=== PATIENT | female | born 1940 | race Caucasian/White ===

== ENCOUNTER 2024-08-27 15:41 | Inpatient (IN) ==
[2024-08-27] MEDS ORDERED: IOPAMIDOL 100 ML BOTTLE IV ONE (15:42)
[2024-08-27 16:18] LABS: Basophils # (Auto) 0.04 K/mcL (0.00-0.30); Basophils % (Auto) 0.5 % (0.0-2.0); Eosinophils # (Auto) 0.06 K/mcL (0.00-0.70); Eosinophils % (Auto) 0.7 % (0.0-7.0); Hematocrit 46.2 % (34.1-44.9); Hemoglobin 15.3 g/dL (11.2-15.7); Lymphocytes # (Auto) 1.81 K/mcL (1.50-4.80); Lymphocytes % (Auto) 20.6 % (15.5-49.0); Mean Corpuscular HGB Conc 33.1 g/dL (31.0-36.0); Monocytes # (Auto) 0.87 K/mcL (0.10-0.90); Monocytes % (Auto) 9.9 % (1.0-12.0); Neutrophils % (Auto) 68.2 % (38.0-78.0); Platelet Count 181 K/mcL (140-440); RBC 5.26 M/mcL (3.59-5.38); WBC 8.8 K/mcL (4.5-11.0)
[2024-08-27 16:34] LABS: INR 0.9 (0.9-1.1); Prothrombin Time 13.0 sec (11.9-14.5)
[2024-08-27 16:36] LABS: ALT/SGPT 47 U/L (<40); AST/SGOT 28 U/L (<32); Albumin 4.2 gm/dL (3.2-5.2); Albumin/Globulin Ratio 1.7 (1.0-2.3); Alkaline Phosphatase 102 U/L (39-117); Anion Gap 16.0 (8.0-16.0); Bilirubin,Total 0.5 mg/dL (0.1-1.0); Blood Urea Nitrogen 13 mg/dL (8-23); Calcium 10.0 mg/dL (8.6-10.4); Carbon Dioxide 25 mmol/L (22-30); Chloride 108 mmol/L (96-108); Globulin 2.5 gm/dL (2.2-3.7); Glucose 123 mg/dL (70-105); Potassium 3.6 mmol/L (3.3-5.1); Sodium 149 mmol/L (133-145)
[2024-08-27 16:44] LABS: Partial Thromboplastin Time 21.4 sec (20.0-37.0)
[2024-08-27] MEDS: 0.9 % SODIUM CHLORIDE 500 ML IV ONE (16:52)
[2024-08-27] MEDS: LABETALOL HCL 20 MG/4 ML VIAL IV ONE (17:24)
[2024-08-27] MEDS: ASPIRIN 81 MG TAB.CHEW CHEWED ONE (17:30)
[2024-08-27] MEDS: ATORVASTATIN 40 MG TABLET PO ONE (19:27)
[2024-08-27] MEDS ORDERED: POTASSIUM CHLORIDE 40 MEQ in DEXTROSE 5% IN WATER 500 ML IV PRN (19:45)
[2024-08-27] MEDS ORDERED: MAGNESIUM SULFATE 2 GM/50 ML BAG IV PRN (19:45)
[2024-08-27] MEDS ORDERED: ATORVASTATIN 40 MG TABLET PO ONE (19:45)
[2024-08-27] MEDS ORDERED: POTASSIUM CHLORIDE 20 MEQ TABLET PO PRN (19:45)
[2024-08-27] MEDS ORDERED: METOCLOPRAMIDE 10 MG/2 ML VIAL IV PRN (19:45)
[2024-08-27] MEDS ORDERED: IPRATROPIUM/ALBUTEROL 3 ML AMPUL.NEB NEB PRN (19:45)
[2024-08-27] MEDS ORDERED: DEXTROSE 50% 50 ML VIAL IV PRN (19:45)
[2024-08-27] MEDS ORDERED: DEXTROSE 31 GM ORAL.SUSP PO PRN (19:45)
[2024-08-27] MEDS ORDERED: ONDANSETRON 4 MG/2 ML VIAL IV PRN (19:45)
[2024-08-27] MEDS ORDERED: POLYETHYLENE GLYCOL 3350 17 GM PACKET PO PRN (19:45)
[2024-08-27] MEDS ORDERED: SENNOSIDES 1 TABLET PO PRN (19:45)
[2024-08-27] MEDS: 0.45 % SODIUM CHLORIDE 1,000 ML IV ONE (21:19)
[2024-08-27] MEDS: DEXTROSE 5% IN WATER 500 ML IV ONE (21:22)
[2024-08-27] MEDS: DOCUSATE SODIUM 100 MG CAPSULE PO SCH (21:23)
[2024-08-27] MEDS: ATORVASTATIN 40 MG TABLET PO SCH (21:25)
[2024-08-27] MEDS: INSULIN LISPRO 1 UNIT/0.01 ML UNIT SQ SCH (21:40)
[2024-08-28 06:17] LABS: ALT/SGPT 36 U/L (<40); AST/SGOT 23 U/L (<32); Albumin 3.7 gm/dL (3.2-5.2); Albumin/Globulin Ratio 1.7 (1.0-2.3); Alkaline Phosphatase 88 U/L (39-117); Anion Gap 12.0 (8.0-16.0); Bilirubin,Direct 0.3 mg/dL (<0.3); Bilirubin,Total 0.8 mg/dL (0.1-1.0); Blood Urea Nitrogen 9 mg/dL (8-23); Calcium 9.0 mg/dL (8.6-10.4); Carbon Dioxide 24 mmol/L (22-30); Chloride 104 mmol/L (96-108); Globulin 2.2 gm/dL (2.2-3.7); Glucose 151 mg/dL (70-105); Phosphorous 3.6 mg/dL (2.5-4.5); Potassium 3.3 mmol/L (3.3-5.1); Sodium 140 mmol/L (133-145); Triglycerides 122 mg/dL (<150); Uric Acid 6.7 mg/dL (2.5-8.0)
[2024-08-28] MEDS: ENOXAPARIN 40 MG/0.4 ML SYRINGE SQ SCH (09:52)
[2024-08-28] MEDS: ASPIRIN 81 MG TAB.CHEW CHEWED SCH (09:52)
[2024-08-28 10:29] LABS: Estimated Average Glucose(eAG) 192 mg/dL; Hemoglobin A1C 8.3 % Hgb (4.0-6.0)
[2024-08-28] MEDS: 0.9 % SODIUM CHLORIDE 10 ML SYRINGE IV SCH (20:35)
[2024-08-28] MEDS ORDERED: ATORVASTATIN 40 MG TABLET PO SCH (21:00)
[2024-08-28] MEDS: LATANOPROST OPHTH DROPS 2.5ML BOTTLE OU SCH (21:16)
[2024-08-29] MEDS ORDERED: LABETALOL HCL 20 MG/4 ML VIAL IV PRN (07:44)
[2024-08-29] MEDS: DEXTROSE 5%-1/2NS W/20MEQ KCL 1,000 ML IV SCH (09:47)
[2024-08-29] MEDS: INSULIN LISPRO 1 UNIT/0.01 ML UNIT SQ SCH (11:42)
[2024-08-29] MEDS ORDERED: hydrALAZINE 20 MG/ML VIAL IV PRN (13:50)
[2024-08-29] MEDS: LIDOCAINE 4% TOP PATCH TOPICAL SCH (15:01)
[2024-08-29] MEDS: CLOPIDOGREL 75 MG TABLET PO SCH (15:01)
[2024-08-30 06:18] LABS: Anion Gap 12.0 (8.0-16.0); Blood Urea Nitrogen 9 mg/dL (8-23); Calcium 8.8 mg/dL (8.6-10.4); Carbon Dioxide 24 mmol/L (22-30); Chloride 106 mmol/L (96-108); Glucose 199 mg/dL (70-105); Potassium 3.3 mmol/L (3.3-5.1); Sodium 142 mmol/L (133-145)
[2024-08-30] MEDS ORDERED: SENNOSIDES/DOCUSATE SODIUM 1 TAB TABLET PO PRN (09:09)
[2024-08-30] MEDS: LISINOPRIL 10 MG TABLET PO SCH (09:20)
[2024-08-30] MEDS ORDERED: LICORICE ROOT PO PRN (10:45)
[2024-08-30] MEDS: hydrALAZINE 20 MG/ML VIAL IV PRN (12:13)
[2024-08-30] MEDS: INSULIN LISPRO 1 UNIT/0.01 ML UNIT SQ SCH (12:20)
[2024-08-30] MEDS: CARBIDOPA/LEVODOPA 25/100 TABLET PO SCH (15:36)
[2024-08-31 06:09] LABS: Anion Gap 11.0 (8.0-16.0); Blood Urea Nitrogen 11 mg/dL (8-23); Calcium 9.5 mg/dL (8.6-10.4); Carbon Dioxide 24 mmol/L (22-30); Chloride 101 mmol/L (96-108); Glucose 166 mg/dL (70-105); Potassium 3.2 mmol/L (3.3-5.1); Sodium 136 mmol/L (133-145)
[2024-08-31] MEDS: MULTIVIT,THER IRON,CA,FA & MIN 1 TABLET PO SCH (08:49)
[2024-08-31] MEDS: POTASSIUM CHLORIDE 20 MEQ TABLET PO PRN (08:49)
[2024-08-31] MEDS: LISINOPRIL 10 MG TABLET PO ONE (15:56)
[2024-08-31] MEDS: BACLOFEN 10 MG TABLET PO PRN (21:39)
[2024-08-31] MEDS: IBUPROFEN 600 MG TABLET PO PRN (22:37)
[2024-09-01 06:04] LABS: Anion Gap 13.0 (8.0-16.0); Blood Urea Nitrogen 19 mg/dL (8-23); Calcium 9.0 mg/dL (8.6-10.4); Carbon Dioxide 24 mmol/L (22-30); Chloride 114 mmol/L (96-108); Glucose 166 mg/dL (70-105); Potassium 3.2 mmol/L (3.3-5.1); Sodium 151 mmol/L (133-145)
[2024-09-01] MEDS: LISINOPRIL 10 MG TABLET PO SCH (08:37)
[2024-09-01 11:46] VITALS: TEMP 97.5
[2024-09-01 12:01] VITALS: O2SAT 95
== END 2024-09-01 11:50 | DRG 65 ==
LOC: ICU 15:41 → ED 15:41 → ICU 19:15
PROVIDERS: ADMIT Internal Medicine; ATTEND Internal Medicine